=== PATIENT | male | born 1950 | race Caucasian/White ===

== ENCOUNTER 2018-06-13 02:54 | Emergency (ER) | payer MEDICARE ==
[~2018-06-13] VITALS: Ht 175.3 cm; Wt 108.9 kg
[~2018-06-13 02:54] MED LIST: AMITRIPTYLINE H10 M1 PO; AMLODIPINE BESY10 MG PO; ASPIRIN81 M2 PO; ATORVASTATIN CA80 MG PO; AUGMENTIN 875875 MG PO; AZITHROMYCIN 2250 MG PO; BENADRYL25 MG PO; CADUET 5 MG-101 EACH PO; CARAFATE 1 GM TA1 G1 PO; CARVEDILOL3.125 MG PO; CELEBREX; CIPRODEX OTIC7.5 ML OTIC; EFFIENT10 MG PO; ENDOCET 5-3251 EACH PO; EPIPEN0.3 MG/0.3 IM; FAMOTIDINE20 MG PO; FAMVIR250 MG PO; FLONASE 0.05%50 MCG NASAL; GABAPENTIN; GLUCOPHAGE1000 MG PO; GLUCOPHAGE500 MG PO; HYDROCODONE-AP1 EAC6 PO; IBUPROFEN 200200 M1 PO; LEVEMIR FL100 UNIT/2 SQ; LEVEMIR IJ; LEVEMIR SUBQ; LIPITOR20 MG PO; LIPITOR80 MG PO; LISINOPRIL2.5 MG PO; LOPRESSOR25 PO; LOPRESSOR50 PO; LOTENSIN; LOVAZA1000 MG PO; MEDROL DOSPAK21 TAB PO; METFORMIN HCL500 MG PO; METHYLPREDNISOLO4 M1 PO; METOPROLOL SUCC50 MG PO; MOBIC; MOBIC7.5 M1 PO; MOBIC7.5 MG PO; MULTIVITAMINS; NITROSTAT0.4 MG SL; NORVASC10 MG PO; OMEPRAZOLE10 MG PO; PANTOPRAZOLE SO40 M1 PO; PEPCID40 MG PO; PERCOCET 5-3251 EACH PO; PLAVIX 75 MG TA75 M1 PO; PREDNISONE 10 M10 M1 PO; PREDNISONE 20 M20 M1 PO; PREDNISONE 20 M20 MG PO; PREDNISONE 5 MG5 M1 PO; PREDNISONE50 MG PO; PROTONIX40 M1 PO; REGLAN 10 MG TA10 MG PO; TRAMADOL 50 MG50 MG PO; TRIAMTERENE-HC1 EAC1 PO; VENTOLIN HFA 1818 GM INH; VICTOZA0.6 MG/0.1 SUBQ; ZANTAC 150MG T150 M1 PO; ZESTRIL5 MG PO; ZOLOFT 50 MG TA50 M1 PO; ZPAK PO; ZYRTEC10 M2 PO
[2018-06-13] MEDS ORDERED: CLARITIN10 MG PO (03:38)
[2018-06-13] MEDS ORDERED: PEPCID40 MG PO (03:38)
[2018-06-13] MEDS ORDERED: PREDNISONE 20 M20 MG PO (03:38)
== END 2018-06-13 04:33 | disposition home or self-care (01) ==
LOC: ER 02:54
DX: L50.0 Allergic urticaria (principal); F17.210 Nicotine dependence, cigarettes, uncomplicated; E11.9 Type 2 diabetes mellitus without complications; I10 Essential (primary) hypertension; E78.5 Hyperlipidemia, unspecified; I42.9 Cardiomyopathy, unspecified; I25.10 Atherosclerotic heart disease of native coronary artery without angina pectoris; K21.9 Gastro-esophageal reflux disease without esophagitis; Z90.89 Acquired absence of other organs; Z88.5 Allergy status to narcotic agent; Z88.6 Allergy status to analgesic agent; Z88.8 Allergy status to other drugs, medicaments and biological substances; Z87.442 Personal history of urinary calculi; Z79.4 Long term (current) use of insulin

== ENCOUNTER → 2020-03-23 | Outpatient (CLI) | payer MEDICARE ==
[~2020-03-23] MED LIST changes: +CLARITIN10 MG PO
== END ==
LOC: MRI 11:21 → CAT 11:21
DX: M19.071 Primary osteoarthritis, right ankle and foot (principal)